=== PATIENT | male | born 1985 | race Hispanic/Latino ===

== ENCOUNTER 2023-01-13 13:10 | Emergency (ER) | payer SELFPAY ==
--- NOTE | ~2023-01-13 | XR_ITS ---
EXAMINATION: XR foot LT 2V INDICATION: Left foot pain TECHNIQUE: Two views of the left foot are obtained COMPARISON: None available FINDINGS: Bone alignment is normal. There is no fracture. There is mild plantar soft tissue swelling of the foot in the area of clinical concern. No radiopaque foreign body is identified. IMPRESSION: 1. Mild soft tissue swelling of the foot without acute osseous abnormality or radiopaque foreign body . Reviewed, dictated and finalized at location A. IMPRESSION: 1. Mild soft tissue swelling of the foot without acute osseous abnormality or r adiopaque foreign body.
--- NOTE | 2023-01-13 13:16 | ED.EXTPRO ---
HPI - Extremity Problem General Chief complaint: Wound/Laceration Stated complaint: nail in left foot Time Seen by Provider: 01/13/23 13:42 Source: patient and RN notes reviewed Mode of arrival: ambulatory Limitations: no limitations History of Present Illness HPI Narrative: 37-year-old male with history of diabetes presents with concern for foreign body in to the left foot. Reports on Sunday he stepped on a nail that was at a board. He reports the nail went into his foot about an inch. He reports pain has worsened, the foot becomes swollen, tender and painful to walk on. He denies fever, body aches, chills, sweats. He has been using crutches to walk. He is unsure of his tetanus status. MD Complaint: extremity pain Related Data Home Medications Medication Instructions Recorded Confirmed metformin 01/13/23 Allergies Allergy/AdvReac Type Severity Reaction Status Date / Time No Known Allergies Allergy Verified 01/13/23 13:31 Review of Systems Review of Systems: CONSTITUTIONAL: Denies malaise, chills, sweats, or fever. CARDIOVASCULAR: Denies chest pain, palpitations, or edema. RESPIRATORY: Denies cough or dyspnea. GASTROINTESTINAL: Denies nausea, vomiting SKIN: Reports redness, warmth, swelling of the left foot, reports puncture wound on the pedal aspect of the left foot MUSCULOSKELETAL: Reports left foot pain, denies body aches NEUROLOGIC: Denies numbness, weakness, or headache. All systems reviewed & are unremarkable except as noted in HPI and below PMFSH Comments At time of signature, agree with nursing past medical, surgical, social and family history. There is no relevant family history pertinent to the presenting complaint Exam Narrative: GENERAL: Well-appearing, well-nourished, and in no acute distress. HEAD: Normocephalic, atraumatic. EYES: PERRLA, conjunctivae clear, and EOMI. ENT: Mucous membranes moist. Oropharynx without edema, erythema or lesions. NECK: Supple. No lymphadenopathy CHEST: Clear to auscultation. No respiratory distress. HEART: Regular rate and rhythm. SKIN: Warm, dry. Left foot is erythematous, edematous, tender with puncture wound noted to the dorsal aspect of ball of the foot beneath digits 3 and 4 NEURO: Alert and oriented x3. PSYCH: Normal mood and affect Course Course Emergency Course: Patient is aware of diagnosis, understands and agrees to treatment plan. Anticipatory guidance given. Patient agrees to follow-up as directed and is aware of reasons to seek care at the emergency department. Portions of this record may have been created with voice recognition software Level of Care: Express Care Visit Vital Signs Vital signs: Reviewed. MDM - Extremity (Nontraumatic) MDM Narrative Medical decision making narrative: Exam findings and imaging show no acute concerns or changes; patient is non-toxic appearing and is in no distress. Patient is appropriate for outpatient treatment and follow-up. Differential Diagnosis Differential diagnosis: Likely gout, cellulitis, superficial thrombophlebitis and other (Puncture wound, foreign body) Imaging Data My impression: Images reviewed, interpreted by radiologist, agree, see report. Radiologist's impression: EXAMINATION: XR foot LT 2V INDICATION: Left foot pain TECHNIQUE: Two views of the left foot are obtained COMPARISON: None available FINDINGS: Bone alignment is normal. There is no fracture. There is mild plantar soft tissue swelling of the foot in the area of clinical concern. No radiopaque foreign body is identified. IMPRESSION: 1. Mild soft tissue swelling of the foot without acute osseous abnormality or radiopaque foreign body. Critical Care Time Critical Care Time Critical Care Time: No Discharge Plan Discharge Clinical Impression: Puncture wound of foot excluding toes with infection Patient Disposition: Home, Self-Care Condition: Stable Instructions: Antibiotic Form Additio
[2023-01-13 13:28] VITALS: BP 135/80; PULSE 115; RESP 16; TEMP 37.8; O2SAT 100
== END 2023-01-13 14:23 | disposition home or self-care (01) ==
PROVIDERS: Emergency Provider Nurse Practitioner; PCP Family Medicine
DX: S91.332A Puncture wound without foreign body, left foot, initial encounter (principal); W45.0XXA Nail entering through skin, initial encounter; E11.9 Type 2 diabetes mellitus without complications
CPT/HCPCS: 73620; 99203; G0463

== ENCOUNTER 2023-02-12 10:35 | Emergency (ER) | payer SELFPAY ==
--- NOTE | ~2023-02-12 | XR_ITS ---
XR foot LT min 3V 02/12/2023 11:28 Indication: Abdominal nail approximately 20 days ago. Increased pain. Procedure: 4 views left foot Comparison: 01/13/2023 Findings: There is erosive destruction of the fourth metatarsal head as well as the proximal aspect o f the fourth proximal phalanx, consistent with osteomyelitis. Mild soft tissue swelling. Lisfranc glendy nt intact. No foreign bodies. Impression: 1: Erosive destruction surrounding the fourth metatarsophalangeal joint, consistent with osteomyeliti s. Reviewed, dictated and finalized at location B. Impression: 1: Erosive destruction surrounding the fourth metatarsophalangeal joint, consis tent with osteomyelitis.
[2023-02-12 10:51] VITALS: BP 124/77; PULSE 81; RESP 16; TEMP 36.2; O2SAT 100
--- NOTE | 2023-02-12 11:09 | ED.LOWEXIN ---
HPI - Extremity Injury (Lower) General Chief Complaint: Extremity Injury, Lower Stated Complaint: Left Foot Pain Time Seen by Provider: 02/12/23 11:09 Source: patient Mode of arrival: ambulatory Limitations: no limitations History of Present Illness HPI Narrative: 37 y/o male presented for c/o left foot pain for about 3 weeks. At the onset, pt stepped on a nail, for which he was evaluated and treated with Bactrim and Augmentin. Reports compliance. Also xray showed mild soft tissue swelling without acute osseous abnormality or FB. Patient reports pain is mild at rest, but 10/10 with walking. Pain mostly to the last 3 toes up to the mid foot, with mild swelling. Taking occasional ibuprofen and using 'a cream' he got from [place]. Denies numbness, tingling or weakness, n/v/d/f/c. patient is primarily Dutch speaking, production control planner services utilized. Related Data Home Medications Medication Instructions Recorded Confirmed No Home Medications 02/12/23 02/12/23 Allergies Allergy/AdvReac Type Severity Reaction Status Date / Time No Known Allergies Allergy Verified 01/13/23 13:31 Review of Systems Review of Systems: CONSTITUTIONAL: Denies body aches, fever, chills EYES: Denies visual changes ENT: Denies rhinorrhea, congestion CARDIOVASCULAR: Denies chest pain, palpitations, or edema. RESPIRATORY: Denies cough or dyspnea. GASTROINTESTINAL: Denies abdominal pain, nausea, vomiting, or diarrhea. SKIN: Reports redness/swelling left foot; Denies rash, itching, or wounds. MUSCULOSKELETAL: Reports left foot pain. Denies back pain, joint pain, or myalgia. NEUROLOGIC: Denies headache, numbness, tingling, or weakness. All systems reviewed & are unremarkable except as noted in HPI and below [facility] Past Medical History Medical History (Updated 02/12/23 @ 12:09 by Lorraine Washington APRN) No pertinent past medical history Comments At time of signature, I have reviewed and agree with nursing past medical, surgical, social and family history unless otherwise noted. Please see nursing chart for further information. There is no relevant family history pertinent to the presenting complaint Exam Narrative: GENERAL: Well-appearing, and in no acute distress. CHEST: Speaks in full sentences. No respiratory distress. HEART: Regular rate and rhythm. Normal and equal peripheral pulses. EXTREMITIES: Left foot: endorses pain with movement and palpation over the dorsal and plantar surfaces of the 3rd, 4th and 5th metatarsals and proximal phalanxes. Mild swelling and erythema over the dorsal and plantar surfaces of the 3rd, 4th and 5th metatarsals and proximal phalanxes. Puncture wound to plantar surface to mid 3rd metatarsal, minimally tender at the puncture site, no induration or fluctuance, no drainage; No obvious deformity; Left foot has normal strength and sensation, normal range of motion, alignment normal, pulse palpable and equal bilaterally, skin warm, dry, pink. Capillary refill less than 3 seconds. SKIN: Warm, dry NEURO: Alert and oriented x3. PSYCH: Normal mood and affect Course Course Emergency Course: Patient is aware of diagnosis, understands and agrees to treatment plan. Anticipatory guidance given. Patient agrees to follow-up as directed and is aware of reasons to seek care at the emergency department. Portions of this record may have been created with voice recognition software Level of Care: Express Care Visit Vital Signs Vital signs: Vital Signs Temperature 97.1 F L 02/12/23 10:51 Pulse Rate 81 02/12/23 10:51 Respiratory Rate 16 02/12/23 10:51 Blood Pressure 124/77 02/12/23 10:51 Pulse Oximetry 100 02/12/23 10:51 Oxygen Delivery Room Air 02/12/23 10:51 Temperature 97.1 F L 02/12/23 10:51 Pulse Rate 81 02/12/23 10:51 Respiratory Rate 16 02/12/23 10:51 Blood Pressure 124/77 02/12/23 10:51 Pulse Oximetry 100 02/12/23 10:51 Oxygen Delivery Room Air 02/12/23 10:51
[2023-02-12] MEDS: ACETAMINOPHEN 500 MG TABLET 1000 MG PO (12:25)
== END 2023-02-12 12:27 | disposition short-term general hospital (02) ==
PROVIDERS: Emergency Provider Nurse Practitioner Family; PCP Family Medicine
DX: M86.172 Other acute osteomyelitis, left ankle and foot (principal); E11.9 Type 2 diabetes mellitus without complications
CPT/HCPCS: 73630; 99213; A9270; G0463

== ENCOUNTER 2024-01-18 15:55 | Emergency (ER) | payer SELFPAY ==
--- NOTE | ~2024-01-18 | XR_ITS ---
XR foot LT min 3V Ordering provider: Orly Sauer NP History: . pain x 2 weeks after dropping lumber on it, great toe . Comparison: February 12, 2023 FINDINGS: BONES: Missing distal portion of the fourth metatarsal bone most likely surgically removed. No acute fracture or dislocation. JOINT SPACES: Narrowing of the proximal and distal interphalangeal joints. No tarsal coalition. SOFT TISSUES: Normal. IMPRESSION: No acute osseous abnormality left foot. Missing distal portion of the fourth metatarsal bone most likely surgically removed Reviewed, dictated and finalized at location A. IMPRESSION: No acute osseous abnormality left foot. Missing distal portion of the fourth metatarsal bone most likely surgically rem selena
[2024-01-18 16:06] VITALS: BP 140/74; PULSE 64; RESP 20; TEMP 36.6; O2SAT 98
[2024-01-18 16:08] VITALS: BP 140/74; PULSE 64; RESP 20; TEMP 36.6; O2SAT 98
[2024-01-18 16:17] LABS: Glucose Point of Care 99 mg/dl (65-105)
--- NOTE | 2024-01-18 16:35 | ED.LOWEXIN ---
HPI - Extremity Injury (Lower) General Chief Complaint: Extremity Injury, Lower Stated Complaint: left foot pain Time Seen by Provider: 01/18/24 16:35 Source: patient and finance specialist Mode of arrival: ambulatory Limitations: no limitations History of Present Illness HPI Narrative: 38 yo M reports with c/o pain to L great toe with bruising to toenail. Dropped 4x4 on L great toe approx. 2 wks ago and still has pain. Pt also reports constant pain to both feet with tingling. In the past has been on gabapentin for diabetic neuropathy but has not had medication for several months. States they just never refilled it . All systems reviewed and negative except as noted above. Related Data Home Medications Medication Instructions Recorded Confirmed metformin 500 mg tablet 500 mg PO BID 01/18/24 01/18/24 Allergies Allergy/AdvReac Type Severity Reaction Status Date / Time No Known Allergies Allergy Verified 01/18/24 16:05 Review of Systems Review of Systems: CONSTITUTIONAL: Denies fever, chills, or sweats. EYES: Denies visual changes, redness, or discharge. ENT: Denies rhinorrhea, congestion, sore throat, or otalgia. CARDIOVASCULAR: Denies chest pain, palpitations, or edema. RESPIRATORY: Denies cough or dyspnea. GASTROINTESTINAL: Denies abdominal pain, nausea, vomiting, or diarrhea. GENITOURINARY: Denies dysuria or hematuria. SKIN: Denies rash or itching. MUSCULOSKELETAL: Reports bilateral foot pain with tingling. Reports pain and bruising to left great toe. NEUROLOGIC: Denies headache, numbness, or weakness. PSYCHIATRIC: Denies anxiety or depression. All other systems reviewed are negative, except as documented in HPI. [facility] Past Medical History Medical History (Updated 01/19/24 @ 00:01 by Background Daemon) No pertinent past medical history Comments At time of signature, agree with nursing past medical, surgical, social and family history. There is no relevant family history pertinent to the presenting complaint. Exam Narrative: GENERAL: This is a well-nourished, well-developed patient, in no apparent distress. HEAD: normocephalic, atraumatic. EYES: PERRL. Sclera clear/white. Vision is grossly intact. EARS: External ears normal NOSE: External nose normal NECK: Neck supple, non-tender without lymphadenopathy, masses or thyromegaly. CARDIOVASCULAR: Regular rate and rhythm without murmurs, gallops, or rubs. RESPIRATORY: Clear to auscultation. Breath sounds equal bilaterally. No wheezes, rales, or rhonchi. SKIN: warm, Dry, intact with no suspicious lesions or rash, good texture and turgor. NEURO: awake, alert, and oriented to person, place and time. There were no obvious focal neurologic abnormalities. EXTREMITIES: tenderness on palpation to distal aspect L great toe with bruising to L toenail. nail intact. no erythema or warmth concerning for infection Course Course Level of Care: Express Care Visit Vital Signs Vital signs: Vital Signs Temperature 36.6 C 01/18/24 16:06 Pulse Rate 64 01/18/24 16:06 Respiratory Rate 20 01/18/24 16:06 Blood Pressure 140/74 01/18/24 16:06 Pulse Oximetry 98 01/18/24 16:06 Oxygen Delivery Room Air 01/18/24 16:06 Temperature 36.6 C 01/18/24 16:08 Pulse Rate 64 01/18/24 16:08 Respiratory Rate 20 01/18/24 16:08 Blood Pressure 140/74 01/18/24 16:08 Pulse Oximetry 98 01/18/24 16:08 Oxygen Delivery Room Air 01/18/24 16:08 reviewed MDM - Extremity Injury (Lower) MDM Narrative Medical decision making narrative: Discussed x-ray results with patient. Negative for fracture to left great toe. Recommend ibuprofen or Tylenol to treat left great toe contusion. Recommend follow-up primary care physician to further discuss bilateral foot pain and tingling and refill for gabapentin. Most likely related to diabetic neuropathy. Patient is aware of diagnosis, understands and agrees to treatment plan. Anticipatory guidance given.
== END 2024-01-18 17:55 | disposition home or self-care (01) ==
PROVIDERS: Emergency Provider Nurse Practitioner Family; PCP Family Medicine
DX: S90.212A Contusion of left great toe with damage to nail, initial encounter (principal); W20.8XXA Other cause of strike by thrown, projected or falling object, initial encounter; E11.42 Type 2 diabetes mellitus with diabetic polyneuropathy; Z79.84 Long term (current) use of oral hypoglycemic drugs
CPT/HCPCS: 73630; 82948; 99213; G0463